=== PATIENT | female | born 1975 | race Caucasian/White ===

== ENCOUNTER 2018-01-11 08:10 | Emergency (ER) | payer BC ==
[~2018-01-11] VITALS: Ht 162.6 cm; Wt 98.4 kg
[2018-01-11 08:15] VITALS: Ht 162.6 cm; Wt 98.4 kg
[2018-01-11 10:25] VITALS: BP 139/79
== END 2018-01-11 10:25 | disposition home or self-care (01) ==
LOC: ED 08:10
DX: S20.211A Contusion of right front wall of thorax, initial encounter (principal); S43.402A Unspecified sprain of left shoulder joint, initial encounter; Z88.1 Allergy status to other antibiotic agents; V48.5XXA Car driver injured in noncollision transport accident in traffic accident, initial encounter; Y93.I9 Activity, other involving external motion; Y92.413 State road as the place of occurrence of the external cause; Y99.8 Other external cause status

== ENCOUNTER 2018-03-29 14:56 | Emergency (ER) | payer BC ==
[~2018-03-29] VITALS: Ht 162.6 cm; Wt 104.8 kg
[2018-03-29 15:07] VITALS: Ht 162.6 cm; Wt 104.8 kg
[2018-03-29 17:58] VITALS: BP 148/62
== END 2018-03-29 17:58 | disposition home or self-care (01) ==
LOC: ED 14:56
DX: B02.9 Zoster without complications (principal); Z88.1 Allergy status to other antibiotic agents